=== PATIENT | male | born 1960 ===

== ENCOUNTER 2018-04-01 07:39 | Emergency (ER) | payer MEDICAID ==
[2018-04-01 07:48] VITALS: RESP 18; BMI 21.8
--- NOTE | 2018-04-01 12:11 | ED PDOC ---
Lower Extremity Pain/Injury Time Seen by Provider: 04/01/18 07:52 Chief Complaint (Nursing): Lower Extremity Problem/Injury Chief Complaint (Provider): Righ knee pain History Per: Patient History/Exam Limitations: no limitations Onset/Duration Of Symptoms: Other (several of months) Current Symptoms Are (Timing): Still Present Additional Complaint(s): 57 year old undomicile male presents to the ED for an evaluation of right knee pain for several of months. He reports of alcohol abuse and drank alcohol last night. [place] he states he was unable to get to the correction. Patient was at [facility] earlier in the night and discharged with alcohol intoxication. He denies recent injury but has experienced a fall one month ago. He is able to walk with unsteady gait and uses a cane for assistance. PMD: no family provider Past Medical History Reviewed: Historical Data, Nursing Documentation, Vital Signs Vital Signs: Last Vital Signs Temp 97 F L 04/01/18 07:43 Pulse 88 04/01/18 07:43 Resp 18 04/01/18 07:43 BP 143/83 04/01/18 07:43 Pulse Ox 100 04/01/18 07:43 - Medical History PMH: Anemia, HTN, Pneumonia Denies: Chronic Kidney Disease - Surgical History Surgical History: No Surg Hx - Family History Family History: States: Unknown Family Hx - Social History Current smoker - smoking cessation education provided: No Alcohol: < 2 Drinks/Day Drugs: Denies - Immunization History Hx Tetanus Toxoid Vaccination: No Hx Influenza Vaccination: No Hx Pneumococcal Vaccination: No - Home Medications Home Medications: Ambulatory Orders Medication Instructions Recorded RX: Naproxen 500 mg PO BID #30 tab 04/01/18 - Allergies Allergies/Adverse Reactions: Allergies Allergy/AdvReac Type Severity Reaction Status Date / Time No Known Allergies Allergy Verified 04/01/18 07:50 Review of Systems ROS Statement: Except As Marked, All Systems Reviewed And Found Negative Constitutional: Negative for: Fever, Chills Cardiovascular: Negative for: Chest Pain Respiratory: Negative for: Cough, Shortness of Breath Musculoskeletal: Positive for: Other (right knee pain) Neurological: Negative for: Weakness, Numbness Physical Exam - Reviewed Nursing Documentation Reviewed: Yes Vital Signs Reviewed: Yes - Physical Exam Appears: Positive for: Non-toxic, No Acute Distress. Negative for: Well (disheveled) Head Exam: Positive for: ATRAUMATIC, NORMAL INSPECTION, NORMOCEPHALIC Skin: Positive for: Normal Color, Warm, Dry. Negative for: Rash Eye Exam: Positive for: EOMI Cardiovascular/Chest: Positive for: Regular Rate, Rhythm Respiratory: Negative for: Respiratory Distress Extremity: Positive for: Normal ROM (full), Capillary Refill (normal), Swelling (right knee). Negative for: Tenderness, Deformity, Other (erythema) Neurologic/Psych: Positive for: Alert, Oriented (x3), Gait (unsteady), Other (clear speech) - ECG O2 Sat by Pulse Oximetry: 100 (RA) Pulse Ox Interpretation: Normal - Progress Re-evaluation Time: 13:36 Condition: Re-examined, Improved Medical Decision Making Medical Decision Making: Time: 805 Impression: right knee pain and alcohol abuse Plan: --alcohol serum --knee 3 views RT [RAD] --Ibuprofen 600mg --Reevaluation Scribe Attestation: Documented by Gretta Yi, acting as a scribe for Shanon Johnson MD. Provider Scribe Attestation: All medical record entries made by the Scribe were at my direction and personally dictated by me. I have reviewed the chart and agree that the record accurately reflects my personal performance of the history, physical exam, medical decision making, and the department course for this patient. I have also personally directed, reviewed, and agree with the discharge instructions and disposition. Disposition - Clinical Impression Clinical Impression: Arthritis of knee, Knee pain, Alcohol intoxication, Homeless - Patient ED Disposition Is Patient to be Admitted: No Doctor Will See Patient In The: Office Counseled Patient/Family Regarding: Studies Performed, Diagnosis, Need For Followup - Disposition Referrals: [facility] [Outside] Disposition: Routine/Home Disposition Time: 13:36 Condition: IMPROVED Additional Instructions: NAVATI ROMERO, thank you for letting us take care of you today. Your provider was Shanon Johnson MD and you were treated for RT KNEE PAIN. The emergency medical care you received today was directed at your acute symptoms. If you were prescribed any medication, please fill it and take as directed. It may take several days for your symptoms to resolve. Return to the Emergency Department if your symptoms worsen, do not improve, or if you have any other problems. Please contact your doctor or call one of the physicians/clinics you have been referred to that are listed on the Patient Visit Information form that is included in your discharge packet. Bring any paperwork you were given at discharge with you along with any medications you are taking to your follow up visit. Our treatment cannot replace ongoing medical care by a primary care abiodun aguero outside of the emergency department. Thank you for allowing the [facility] team to be part of your care today. If you had an X-Ray or CT scan: A Radiologist will review the ED reading if any change in treatment is needed we will contact you. If you had a blood, urine, or wound culture: It will take several days for the results, if any change in treatment is needed we will contact you. If you had an STI test: It will take 48 hours for the results. Please call after 1 week if you have not heard back. Prescriptions: RX: Naproxen 500 mg PO BID #30 tab Instructions: Alcohol Abuse and Alcoholism (DC), Knee Pain
--- NOTE | 2018-04-01 14:29 | RAD ---
Date of service: 04/01/2018 PROCEDURE: Right Knee Radiographs. HISTORY: knee pain old injury COMPARISON: None. FINDINGS: BONES: No acute fracture or destructive bony lesion identified. JOINTS: Normal. No osteoarthritis. JOINT EFFUSION: Moderate suprapatellar bursa effusion noted. OTHER FINDINGS: Cellulitis type pattern of deep subcutaneous fat surrounding the right knee diffusely. No retained radiodense foreign body or emphysema soft tissue changes identified. IMPRESSION: No acute fracture dislocation. Moderate suprapatellar bursa effusion. Diffuse cellulitis pattern suggest surrounding right knee as per above.
[2018-04-01 18:47] VITALS: BP 138/78; PULSE 78; TEMP 98.2
[2018-04-02 07:35] VITALS: O2SAT 100
== END 2018-04-01 18:05 | disposition home or self-care (01) ==
LOC: H.ER 07:39
DX: M17.11 Unilateral primary osteoarthritis, right knee (principal); F10.129 Alcohol abuse with intoxication, unspecified; I10 Essential (primary) hypertension; Z59.0 Homelessness
CPT/HCPCS: 73562; 80320; 97161; 99285; G8978; G8979